=== PATIENT | male | born 1965 | race Caucasian/White ===

== ENCOUNTER 2017-11-02 21:09 | Emergency (ER) | payer BC ==
[~2017-11-02] VITALS: Ht 175.3 cm; Wt 85.7 kg
[2017-11-02 21:21] VITALS: Ht 175.3 cm; Wt 85.7 kg
[2017-11-03 01:45] VITALS: BP 108/69
== END 2017-11-03 01:45 | disposition home or self-care (01) ==
LOC: ED 21:09
DX: S42.141A Displaced fracture of glenoid cavity of scapula, right shoulder, initial encounter for closed fracture (principal); I10 Essential (primary) hypertension; W10.9XXA Fall (on) (from) unspecified stairs and steps, initial encounter; Y93.89 Activity, other specified; Y92.89 Other specified places as the place of occurrence of the external cause; Y99.8 Other external cause status
CPT/HCPCS: J1885; J3010; Q0092; Q0162